=== PATIENT | female | born 1950 | race Caucasian/White ===

== ENCOUNTER → 2020-10-01 | Outpatient (CLI) | payer MEDICARE ==
[~2020-10-01] MED LIST: HYDRALAZINE HCL50 MG PO; LEVOXYL100 MCG PO; LOPID TAB 600600 MG PO; NORVASC 5 MG TAB5 MG PO
== END ==
LOC: RAD 12:35
DX: M51.16 Intervertebral disc disorders with radiculopathy, lumbar region (principal); M41.86 Other forms of scoliosis, lumbar region
CPT/HCPCS: 72110

== ENCOUNTER → 2020-10-12 | Outpatient (CLI) | payer MEDICARE, OTHER | LOC: MRI 10:05 | DX: R29.898 Other symptoms and signs involving the musculoskeletal system (principal); R29.2 Abnormal reflex; M54.30 Sciatica, unspecified side; N95.1 Menopausal and female climacteric states; M48.061 Spinal stenosis, lumbar region without neurogenic claudication; M48.07 Spinal stenosis, lumbosacral region; M51.16 Intervertebral disc disorders with radiculopathy, lumbar region; M25.78 Osteophyte, vertebrae; Z98.1 Arthrodesis status | CPT/HCPCS: 72158; A9577 ==

== ENCOUNTER → 2021-05-19 | Outpatient (CLI) | payer MEDICARE | LOC: MAMO 14:29 | DX: Z12.31 Encounter for screening mammogram for malignant neoplasm of breast (principal); Z78.0 Asymptomatic menopausal state | CPT/HCPCS: 77063; 77067 ==

== ENCOUNTER → 2021-10-31 | Outpatient (CLI) | payer MEDICARE | LOC: KOH-I 13:01 | DX: M47.26 Other spondylosis with radiculopathy, lumbar region (principal); M51.16 Intervertebral disc disorders with radiculopathy, lumbar region; M51.17 Intervertebral disc disorders with radiculopathy, lumbosacral region | CPT/HCPCS: 72110 ==

== ENCOUNTER → 2021-11-25 | Outpatient (CLI) | payer MEDICARE | LOC: KOH-I 11-15 09:00 | DX: R29.898 Other symptoms and signs involving the musculoskeletal system (principal); M51.16 Intervertebral disc disorders with radiculopathy, lumbar region; M41.9 Scoliosis, unspecified | CPT/HCPCS: 72148 ==

== ENCOUNTER 2022-01-25 10:19 | Emergency (ER) | payer MEDICARE ==
[2022-01-25] MEDS ORDERED: PERCOCET 5-3251 EACH PO (12:09)
[2022-01-25] MEDS ORDERED: CYCLOBENZAPRINE10 MG PO (12:09)
[2022-01-25] MEDS ORDERED: PREDNISONE20 MG PO (12:09)
== END 2022-01-25 12:18 | disposition home or self-care (01) ==
LOC: ER1 10:19
DX: M51.36 Other intervertebral disc degeneration, lumbar region (principal); M54.42 Lumbago with sciatica, left side; G89.29 Other chronic pain; Z88.8 Allergy status to other drugs, medicaments and biological substances
CPT/HCPCS: 81001; 99283

== ENCOUNTER → 2022-05-22 | Outpatient (CLI) | payer MEDICARE ==
[~2022-05-22] MED LIST changes: +CYCLOBENZAPRINE10 MG PO; +PERCOCET 5-3251 EACH PO; +PREDNISONE20 MG PO
== END ==
LOC: MAMO 14:13
DX: Z12.31 Encounter for screening mammogram for malignant neoplasm of breast (principal); Z78.0 Asymptomatic menopausal state
CPT/HCPCS: 77063; 77067